=== PATIENT | male | born 1990 | race Caucasian/White ===

== ENCOUNTER → 2022-06-20 | Outpatient (CLI) | payer OTHER | LOC: COL.RAD 12:09 | DX: M51.37 Other intervertebral disc degeneration, lumbosacral region (principal); M43.16 Spondylolisthesis, lumbar region; M43.06 Spondylolysis, lumbar region ==

== ENCOUNTER → 2022-06-21 | Outpatient (CLI) | payer OTHER | LOC: MHCPAIN 13:22 | DX: M54.50 Low back pain, unspecified (principal); M43.17 Spondylolisthesis, lumbosacral region; M47.816 Spondylosis without myelopathy or radiculopathy, lumbar region; M48.061 Spinal stenosis, lumbar region without neurogenic claudication | CPT/HCPCS: G0463 ==

== ENCOUNTER → 2022-09-16 | Outpatient (CLI) | payer OTHER | LOC: MHCPAIN 13:13 | DX: M43.17 Spondylolisthesis, lumbosacral region (principal); M48.061 Spinal stenosis, lumbar region without neurogenic claudication; M54.50 Low back pain, unspecified | CPT/HCPCS: G0463 ==